=== PATIENT | male | born 1970 | race Caucasian/White ===

== ENCOUNTER 2020-12-11 20:08 | Emergency (ER) | payer SELFPAY ==
[2020-12-11] MEDS ORDERED: Albuterol/Ipratropium 3.0-0.5 MG/3 ML Neb Soln NEB ONE (20:22)
--- NOTE | 2020-12-11 20:31 | EDM.PDOC ---
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 He states his symptoms improved and almost the way when he has off work which she has been the last 2 days which is why he has cough has improved a lot but he wanted to come get checked out. He also has some irritated rash on both his bilateral forearms secondary to the flaxseed oil. He states that usually clears up after a couple days off work as well. He does wear a paper mask at work but it does not seem to help. He takes occasional [id number] cough medicine which he says does not do much. He has no other complaints at this time. He does not smoke he has no respiratory issues and takes no other medications at this time Duration: Week(s): Improves with: Reports: Other (Being off work) Associated Symptoms: Reports: Cough, cough w sputum. Denies: No Other Symptoms, Confusion, Chest Pain - Related Data Allergies Allergy/AdvReac Type Severity Reaction Status Date / Time No Known Allergies Allergy Verified 03/20/14 09:11 Home Meds: Home Meds . [No Known Home Meds] 03/20/14 [History] Past Medical History - Past Health History Medical/Surgical History: Denies Medical/Surgical History ED ROS GENERAL - Review of Systems Review Of Systems: See Below Constitutional: Reports: No Symptoms. Denies: Fever, Chills, Malaise, Weakness HEENT: Reports: No Symptoms Respiratory: Reports: Shortness of Breath, Cough, Sputum, Other (No shortness of breath as of right now just cough with clear yellowish thick sputum). Denies: Wheezing, Pleuritic Chest Pain Cardiovascular: Reports: No Symptoms Endocrine: Reports: No Symptoms GI/Abdominal: Reports: No Symptoms : Reports: No Symptoms Musculoskeletal: Reports: No Symptoms Skin: Reports: No Symptoms Neurological: Reports: No Symptoms Hematologic/Lymphatic: Reports: No Symptoms Immunologic: Reports: Environmental Allergy ED EXAM, GENERAL - Physical Exam Exam: See Below Exam Limited By: No Limitations General Appearance: Alert, WD/WN, No Apparent Distress Eye Exam: Bilateral Eye: Normal Inspection Ears: Normal External Exam, Normal Canal, Hearing Grossly Normal, Normal TMs Nose: Normal Inspection, Normal Mucosa, No Blood. No: Nasal Swelling Throat/Mouth: Normal Inspection, Normal Lips, Normal Teeth, Normal Gums, Normal Oropharynx, Normal Voice, No Airway Compromise Head: Atraumatic, Normocephalic Neck: Normal Inspection, Supple, Non-Tender, Full Range of Motion Respiratory/Chest: No Respiratory Distress, No Accessory Muscle Use, Chest Non- Tender, Other (He has some mild diffuse wheezing and rhonchi no signs symptoms any respiratory distress sat is 9395% on room air). No: Lungs Clear, Normal Breath Sounds Cardiovascular: Normal Peripheral Pulses, Regular Rate, Rhythm, No Edema, No Gallop, No JVD, No Murmur GI/Abdominal: Normal Bowel Sounds, Soft, Non-Tender Extremities: Normal Inspection, Normal Range of Motion, Non-Tender, No Pedal Edema, Normal Capillary Refill Neurological: Alert, Oriented, CN II-XII Intact, Normal Cognition, Normal Gait, No Motor/Sensory Deficits Psychiatric: Normal Affect, Normal Mood Skin Exam: Warm, Dry, Intact, Normal Color. No: No Rash (There is a mild scant erythematous maculopapular rash on the inside of both forearms appear to be contact dermatitis by nature) Course - Vital Signs Text/Narrative:: We will give the patient a DuoNeb treatment discharged with albuterol inhaler inform the patient take Claritin daily may take [id number] Mucinex as well and use normal saline nasal spray start wearing a better fitting mask or respirator at work Mild noted hypertension but the patient has no endorgan signs or symptom - Orders/Labs/Meds Orders: Active Orders 24 hr Category Date Time Status RT Aerosol Therapy [RC] ASDIRECTED Care 12/11/20 20:22 Active Meds: Medications Discontinued Medications Generic Name Dose Route Start Last Admin Trade Name Freq PRN Reason Stop Dose Admin Albuterol/Ipratropium 3 ml 12/11/20 20:22 Albuterol/Ipratropium 3.0-0.5 Mg/3 Ml Neb Soln NEB 12/11/20 20:23 ONETIME ONE Departure - Departure Time of Disposition: 20:55 Disposition: Home, Self-Care 01 Condition: Good Clinical Impression: Cough, Wheezing - Discharge Information *PRESCRIPTION DRUG MONITORING PROGRAM REVIEWED*: No *COPY OF PRESCRIPTION DRUG MONITORING REPORT IN PATIENT JOSE: No Forms: ED Department Discharge - Problem List & Annotations (1) Cough SNOMED Code(s): 09259583 Code(s): R05.9 - COUGH, UNSPECIFIED Status: Acute (2) Wheezing SNOMED Code(s): 18788954 Code(s): R06.2 - WHEEZING Status: Acute - My Orders Last 24 Hours: My Active Orders 12/11/20 20:22 RT Aerosol Therapy [RC] ASDIRECTED - Assessment/Plan Last 24 Hours: My Active Orders 12/11/20 20:22 RT Aerosol Therapy [RC] ASDIRECTED
== END 2020-12-11 20:50 | disposition home or self-care (01) ==
LOC: VM.ED 20:08
DX: R06.02 Shortness of breath (principal); R06.2 Wheezing
CPT/HCPCS: 94640; 99284-25; J7620-GY

== ENCOUNTER 2021-03-06 14:08 | Emergency (ER) | payer SELFPAY ==
[2021-03-06] MEDS ORDERED: methylPREDNISolone Sodium Succinate 125 MG/2 ML SDV IM ONE (14:25)
== END 2021-03-06 15:03 | disposition home or self-care (01) ==
LOC: VM.ED 14:08
DX: J40 Bronchitis, not specified as acute or chronic (principal); Z20.822 Contact with and (suspected) exposure to COVID-19
CPT/HCPCS: 87635; 96372; 99284; J2930; U0002